=== PATIENT | female | born 1995 | race Caucasian/White ===

== ENCOUNTER 2016-11-10 17:13 | Emergency (ER) | payer OTHER ==
[2016-11-10 17:41] VITALS: BP 111/68; PULSE 99; RESP 16; TEMP 98.2; O2SAT 98
--- NOTE | 2016-11-10 18:44 | EDPHY ---
H & P Stated Complaint: Flu Exposure HPI/ROS: Chief complaint: Cold symptoms History of present illness: This is a 21-year-old female who presents to the emergency department for cold symptoms. Patient reports the last 2-3 days she has had tactile fevers, runny nose, sore throat, and body aches. She does state that multiple friends around her have been diagnosed with influenza B. She denies other associated signs or symptoms including no cough, no chest congestion, no trouble breathing, no rash, no headache or neck pain. - Personal History Current Tetanus/Diphtheria Vaccine: Yes Current Tetanus Diphtheria and Acellular Pertussis (TDAP): Yes - Medical/Surgical History Hx Asthma: No Hx Chronic Respiratory Disease: No Hx Diabetes: No Hx Cardiac Disease: No Hx Renal Disease: No Hx Cirrhosis: No Hx Alcoholism: No Hx HIV/AIDS: No Hx Splenectomy or Spleen Trauma: No Other PMH: Denies - Social History Smoking Status: Never smoked - Physical Exam Exam: General Appearance: Alert and no distress. Eyes: Pupils equal and round no injection. ENT:Tympanic membranes, external auditory canals, external ears and surrounding soft tissue including over the mastoids are unremarkable. Nasopharynx is not injected. There is no rhinorrhea. Oropharynx is not injected. There is no edema. There is no exudate. There is no asymmetry. The uvula is midline. No elevation of the tongue. There is no hoarseness, no drooling, no trismus, no stridor. Respiratory: Chest is non tender, lungs are clear to auscultation. Cardiac: regular rate and rhythm Gastrointestinal: Abdomen is soft and non tender, no masses, bowel sounds normal. Musculoskeletal: Neck is supple and non tender. Extremities have full range of motion and are non tender. Skin: No rashes or lesions. Neurological: Alert and oriented x4. Ambulating without difficulty. No meningismus. Constitutional: Initial Vital Signs Temperature (C) 36.8 C 11/10/16 17:39 Heart Rate 99 11/10/16 17:39 Respiratory Rate 16 11/10/16 17:39 Blood Pressure 111/68 11/10/16 17:39 O2 Sat (%) 98 11/10/16 17:39 O2 Delivery Mode Room Air Allergies/Adverse Reactions: No Known Allergies Allergy (Unverified 07/08/16 16:16) Home Medications: Medication Instructions Recorded Oseltamivir Phosphate [Tamiflu 75 75 mg PO BID #10 cap 11/10/16 mg (*)] Medical Decision Making ED Course/Re-evaluation: Patient seen under the supervision of my primary supervising physician Dr. Cindy Obregon. Patient presents to the emergency department for cold symptoms. On presentation she is nontoxic. Physical exam is largely unremarkable. Influenza B is positive. She does appear to be within treatment range for tamiflu, I have discussed the risks and benefits and she would like to proceed with treatment. Patient is prescribed Tamiflu. Home care is discussed. She is asked to follow up with primary care doctor for recheck. Return precautions are given. - Data Points Laboratory Results: 11/10/16 17:45 Influenza Typ A,B (DFA) POSITIVE FOR FLU B H (NEGATIVE) Departure - Departure Disposition: Home, Routine, Self-Care Clinical Impression: Influenza B Condition: Good Instructions: Influenza (ED) Additional Instructions: Follow-up with her primary care doctor in 1-2 days for recheck If symptoms worsen or new symptoms develop return to the emergency department for recheck Referrals: Reji Palmer DO [Primary Care Provider] - As per Instructions Stand Alone Forms: School Excuse Prescriptions: Oseltamivir Phosphate [Tamiflu 75 mg (*)] 75 mg PO BID #10 cap
== END 2016-11-10 18:44 | disposition home or self-care (01) ==
DX: J10.1 Influenza due to other identified influenza virus with other respiratory manifestations (principal)

== ENCOUNTER 2017-05-06 13:39 | Observation (INO) | payer OTHER ==
[2017-05-06] MEDS ORDERED: LORazepam 2 MG/ML INJ IVP ONE (14:37)
[2017-05-06] MEDS ORDERED: NS 2,000 ML IV ONE (14:37)
[2017-05-06] MEDS ORDERED: KETOROLAC 30 MG/1 ML SDV IVP ONE (14:37)
--- NOTE | 2017-05-06 14:42 | EDPHY ---
H & P Stated Complaint: h/a, sore thrt, bilat ear pain, chills, body aches - Personal History LMP (Females 10-55): Now Current Tetanus/Diphtheria Vaccine: Unsure Current Tetanus Diphtheria and Acellular Pertussis (TDAP): Unsure - Medical/Surgical History Hx Asthma: No Hx Chronic Respiratory Disease: No Hx Diabetes: No Hx Cardiac Disease: No Hx Renal Disease: No Hx Cirrhosis: No Hx Alcoholism: No Hx HIV/AIDS: No Hx Splenectomy or Spleen Trauma: No Other PMH: Denies - Social History Smoking Status: Never smoked Time Seen by Provider: 05/06/17 14:23 HPI/ROS: CHIEF COMPLAINT: "I just feel like crap" HISTORY OF PRESENT ILLNESS: 21-year-old female in the ER with mother via private vehicle stating that last week she was seen at [facility] diagnosed with cystitis and started on Keflex which she completed. Since yesterday morning she has been complaining of bilateral flank pain, non thunderclap bifrontal headache, myalgias, sore throat, bilateral otalgia. She denies: Nuchal rigidity, abdominal pain, chest pain, dyspnea, cough, rash REVIEW OF SYSTEMS: A ten point review of systems was performed and is negative with the exception of the items mentioned in the HPI PAST MEDICAL & SURGICAL HISTORY: recent cystitis diagnosis SOCIAL HISTORY:[employer] student. Nonsmoker. PHYSICAL EXAM (Prior to examination, patient consented to physical exam, hands were washed and my usual and customary physical exam procedures followed) 1) GENERAL: Well-developed, well-nourished, alert and oriented. Appears uncomfortable, sitting in a darkened room, positive photophobia . 2) HEAD: Normocephalic, atraumatic 3) HEENT: Pupils equal, round, reactive to light bilaterally. Sclera anicteric. Positive photophobia Nasopharynx, oropharynx, clear, no lesions. No tonsillar enlargement or exudate Ears bilaterally with normal tympanic membranes. 4) NECK: Full range of motion, no meningeal signs. 5) LUNGS: Clear auscultation bilaterally, no wheezes, no rhonchi, no retractions. 6) HEART: Regular rate and rhythm, no murmur, no heave, no gallop. 7) ABDOMEN: No guarding, no rebound, no focal tenderness, negative McBurney's, negative Klein's, negative Rovsing's, negative peritoneal sign, 8) MUSCULOSKELETAL: Moving all extremities, no focal areas of tenderness, no obvious trauma. No peripheral edema or discoloration. 9) BACK: positive bilateral CVA tenderness, no midline vertebral tenderness, no fluctuance, no step-off, no obvious trauma, no visual or palpable abnormality. 10) SKIN: No rash, no petechiae. 11) Psychiatric: Patient is oriented X 3, there is no agitation. DIFFERENTIAL DIAGNOSIS: in no particular include but limited to meningitis, pyelonephritis, influenza (Clayton,Estefani Ursula) Constitutional: Initial Vital Signs Temperature (C) 37.5 C 05/06/17 13:56 Heart Rate 116 H 05/06/17 13:56 Respiratory Rate 16 05/06/17 13:56 Blood Pressure 110/79 05/06/17 13:56 O2 Sat (%) 98 05/06/17 13:56 O2 Delivery Mode Room Air Allergies/Adverse Reactions: No Known Allergies Allergy (Unverified 07/08/16 16:16) Home Medications: Medication Instructions Recorded levOFLOXACIN [levAQUIN (*)] 750 mg PO DAILY #4 tab 05/06/17 oxyCODONE/APAP 5/325 [Percocet 1 tab PO Q6 #10 tab 05/06/17 5/325] Medical Decision Making ED Course/Re-evaluation: The patient was evaluated and managed by the physician's residential living assistant. My cosignature indicates that I reviewed the chart and I agree with the findings and plan of care as documented. I am the secondary supervising physician. ( Eileen Pinon) 4:30 p.m.: Re-evaluation, sleeping, 2 L IV fluid completed. She appears comfortable. Awaiting urinalysis and respiratory viral panel results 5:30 p.m.: Patient re-evaluated, sleeping, easily woken, appears to be in no acute distress. No nuchal rigidity, excellent range of motion of the neck. Continued positive right CVA tenderness. No abdominal pain. Doubt acute surgical abdominal pathology. We discussed possible pyelonephritis in the presence of her recent cystitis. The case discussed with Dr. Eileen Pinon in the ER who also evaluated the patient. Doubt perinephric abscess. Doubt nephrolithiasis. Doubt sepsis. Doubt meningitis. 6:15 p.m.: Re-evaluation, the patient does not feel comfortable being discharged home. She remains tachycardic in the 110s. Discussed possibility of pyelonephritis. Both Dr. Eileen Pinon and I agree that the patient should be admitted to the hospital and she is agreeable with this. 6:20 p.m.: Phone consultation with Dr. Funes who will admit (Estefani Arnold) - Data Points Laboratory Results: Laboratory Results 05/06/17 15:00 05/06/17 15:00 05/06/17 05/06/17 05/06/17 16:23 15:00 15:00 WBC RBC Hgb Hct MCV MCH MCHC RDW Plt Count MPV Neut % (Auto) Lymph % (Auto) [place] % (Auto) Eos % (Auto) Baso % (Auto) Nucleat RBC Rel Count Absolute Neuts (auto) Absolute Lymphs (auto) Absolute Monos (auto) Absolute Eos (auto) Absolute Basos (auto) Absolute Nucleated RBC Immature Gran % Immature Gran # Sodium 136 mEq/L mEq/L (134-144) Potassium 3.7 mEq/L mEq/L (3.5-5.2) Chloride 101 mEq/L mEq/L (97-110) Carbon Dioxide 21 mEq/l L mEq/l (22-31) Anion Gap 14 mEq/L mEq/L (8-16) BUN 9 mg/dL mg/dL (7-23) Creatinine 0.7 mg/dL mg/dL (0.6-1.0) Estimated GFR > 60 Glucose 91 mg/dL mg/dL (70-100) Calcium 9.7 mg/dL mg/dL (8.5-10.4) Beta HCG, Qual NEGATIVE Urine Color PALE YELLOW Urine Appearance CLEAR Urine pH 7.0 (5.0-7.5) Ur Specific [place] 1.008 (1.002-1.030) Urine Protein NEGATIVE (NEGATIVE) Urine Ketones TRACE H (NEGATIVE) Urine Blood 1+ H (NEGATIVE) Urine Nitrate NEGATIVE (NEGATIVE) Urine Bilirubin NEGATIVE (NEGATIVE) Urine Urobilinogen NEGATIVE EU EU (0.2-1.0) Ur Leukocyte Esterase NEGATIVE (NEGATIVE) Urine RBC 1-3 /hpf /hpf (0-3) Urine WBC 1-3 /hpf /hpf (0-3) Ur Epithelial Cells NONE SEEN /lpf /lpf (NONE-1+) Urine Mucus TRACE /lpf /lpf (NONE-1+) Urine Glucose NEGATIVE (NEGATIVE) 05/06/17 15:00 WBC 15.01 10^3/uL H 10^3/uL (3.80-9.50) RBC 4.73 10^6/uL 10^6/uL (4.18-5.33) Hgb 15.0 g/dL g/dL (12.6-16.3) Hct 43.5 % % (38.0-47.0) MCV 92.0 fL fL (81.5-99.8) MCH 31.7 pg pg (27.9-34.1) MCHC 34.5 g/dL g/dL (32.4-36.7) RDW 12.5 % % (11.5-15.2) Plt Count 221 10^3/uL 10^3/uL (150-400) MPV 10.4 fL fL (8.7-11.7) Neut % (Auto) 90.5 % H % (39.3-74.2) Lymph % (Auto) 5.0 % L % (15.0-45.0) [place] % (Auto) 3.7 % L % (4.5-13.0) Eos % (Auto) 0.0 % L % (0.6-7.6) Baso % (Auto) 0.5 % % (0.3-1.7) Nucleat RBC Rel Count 0.0 % % (0.0-0.2) Absolute Neuts (auto) 13.58 10^3/uL H 10^3/uL (1.70-6.50) Absolute Lymphs (auto) 0.75 10^3/uL L 10^3/uL (1.00-3.00) Absolute Monos (auto) 0.56 10^3/uL 10^3/uL (0.30-0.80) Absolute Eos (auto) 0.00 10^3/uL L 10^3/uL (0.03-0.40) Absolute Basos (auto) 0.07 10^3/uL 10^3/uL (0.02-0.10) Absolute Nucleated RBC 0.00 10^3/uL 10^3/uL (0-0.01) Immature Gran % 0.3 % % (0.0-1.1) Immature Gran # 0.05 10^3/uL 10^3/uL (0.00-0.10) Sodium Potassium Chloride Carbon Dioxide Anion Gap BUN Creatinine Estimated GFR Glucose Calcium Beta HCG, Qual Urine Color Urine Appearance Urine pH Ur Specific Baldwin Urine Protein Urine Ketones Urine Blood Urine Nitrate Urine Bilirubin Urine Urobilinogen Ur Leukocyte Esterase Urine RBC Urine WBC Ur Epithelial Cells Urine Mucus Urine Glucose Microbiology Results: MICROBIOLOGY 05/06/17 15:05 Nasal, Sinus - Swab Respiratory Panel (PCR) - Final No Organism Detected Medications Given: Discontinued Medications Sodium Chloride (Ns) 2,000 mls @ 0 mls/hr IV ONCE ONE PRN Reason: Wide Open Stop: 05/06/17 14:38 Last Admin: 05/06/17 15:10 Dose: 2,000 mls Ketorolac Tromethamine (Toradol) 30 mg IVP EDNOW ONE Stop: 05/06/17 14:38 Last Admin: 05/06/17 15:09 Dose: 30 mg Levofloxacin (Levaquin) 750 mg PO EDNOW ONE PRN Reason: Protocol Stop: 05/06/17 17:33 Last Admin: 05/06/17 17:41 Dose: 750 mg Lorazepam (Ativan Injection) 1 mg IVP EDNOW ONE Stop: 05/06/17 14:38 Last Admin: 05/06/17 15:09 Dose: 1 mg Departure - Departure Disposition: [facility] Clinical Impression: Pyelonephritis Condition: Good Instructions: Kidney Infection (ED) Additional Instructions: Return to the ER immediately if you experience fevers/chills, flu like symptoms , inability to tolerate oral intake, nausea or vomiting, or any other symptoms that concern you. Prescriptions: levOFLOXACIN [levAQUIN (*)] 750 mg PO DAILY #4 tab oxyCODONE/APAP 5/325 [Percocet 5/325] 1 tab PO Q6 #10 tab
[2017-05-06 15:14] LABS: % IMMATURE GRANULYOCYTES 0.3 % (0.0-1.1); ABSOLUTE IMMATURE GRANULOCYTES 0.05 10^3/uL (0.00-0.10); ADD DIFF? NO; ADD MORPH? NO; ADD SCAN? NO; ATYPICAL LYMPHOCYTE FLAG 0 (0-99); FRAGMENT RBC FLAG 0 (0-99); HEMATOCRIT 43.5 % (38.0-47.0); LEFT SHIFT FLG 0 (0-99); LIPEMIA HEMOLYSIS FLAG 90 (0-99); MEAN CELL HEMOGLOBIN 31.7 pg (27.9-34.1); MEAN CELL HEMOGLOBIN CONCENTR. 34.5 g/dL (32.4-36.7); MEAN PLATELET VOLUME 10.4 fL (8.7-11.7); PLATELET CLUMPS FLAG 30 (0-99); PLATELET COUNT 221 10^3/uL (150-400); RED BLOOD CELL COUNT 4.73 10^6/uL (4.18-5.33); RED CELL DISTRIBUTION WIDTH 12.5 % (11.5-15.2)
[2017-05-06 15:27] LABS: ANION GAP 14 mEq/L (8-16); CALCIUM 9.7 mg/dL (8.5-10.4); CARBON DIOXIDE 21 mEq/l (22-31); CHLORIDE 101 mEq/L (97-110); CREATININE 0.7 mg/dL (0.6-1.0); GLOMERULAR FILTRATION RATE > 60; GLUCOSE 91 mg/dL (70-100); POTASSIUM 3.7 mEq/L (3.5-5.2); SODIUM 136 mEq/L (134-144)
[2017-05-06 16:36] LABS: COLOR PALE YELLOW; LEUKOCYTE ESTERASE,URINE NEGATIVE (NEGATIVE); NITRITE,URINE NEGATIVE (NEGATIVE)
[2017-05-06 16:37] LABS: MUCUS TRACE /lpf (NONE-1+)
[2017-05-06] MEDS ORDERED: OXYCODONE/APAP 5/325 TAB PO ONE (18:05)
[2017-05-06] MEDS ORDERED: ACETAMINOPHEN 500 MG TAB PO ONE (19:26)
[2017-05-06] MEDS ORDERED: ONDANSETRON 4 MG/2 ML VIAL IVP PRN (20:04)
[2017-05-06] MEDS ORDERED: KETOROLAC 30 MG/1 ML SDV IVP PRN (20:04)
[2017-05-06] MEDS ORDERED: PROMETHAZINE HCL 25 MG/ML INJ IVP PRN (20:04)
[2017-05-06] MEDS ORDERED: ACETAMINOPHEN 325 MG TAB PO PRN (20:04)
--- NOTE | 2017-05-06 20:55 | GHP ---
[f rep st] HISTORY AND PHYSICAL DATE OF ADMISSION: 05/06/2017 CHIEF COMPLAINT: Fever, headache, body aches, and flank pain. HISTORY OF PRESENT ILLNESS: This is a 21-year-old female who was treated for a urinary tract infecti on last week with Keflex who presents to the hospital today with fever, headaches, body aches, and fl ank pain. Since starting the Keflex last week her urinary symptoms have resolved. However, she continues to rodriguez ve some flank pain. She denies any nausea or vomiting. She reports muscle aches all over. She has a history of migraines in her teens but has not had a migraine for some time. Currently, her headach e is described as bitemporal, sharp and pounding, and is associated with photophobia. PAST MEDICAL HISTORY: Asthma. PAST SURGICAL HISTORY: Denies. HOME MEDICATIONS: Denies. ALLERGIES: No known drug allergies. SOCIAL HISTORY: She denies any alcohol, tobacco, or illicit drug use. She denies any history or ris k factors for sexually transmitted infections. FAMILY HISTORY: Reviewed and noncontributory. REVIEW OF SYSTEMS: Comprehensive 10-point review of systems was done and is negative, except for as mentioned in the History of Present Illness. PHYSICAL EXAM: VITAL SIGNS: Blood pressure 113/68, pulse of 111, respiratory rate 16, O2 saturation 97% on room air. Temperature: Afebrile. GENERAL: Ill-appearing but in no acute distress. Appear s to be mildly uncomfortable. HEAD: Normocephalic, atraumatic. EYES: PERRLA. Sclerae anicteric. MOUTH: Moist mucous membranes. NECK: Supple. No lymphadenopathy. No nuchal rigidity or meningis mus. CARDIOVASCULAR: S1, S2. No JVD. No lower extremity edema. PULMONARY: Lungs are clear. No wheezes, rales, or rhonchi. ABDOMEN: Soft, nontender, nondistended. No guarding or rebound tendern ess. Normoactive bowel sounds. EXTREMITIES: No clubbing or cyanosis. NEURO: Cranial nerves 2-12 grossly intact. No focal motor or sensory deficits. SKIN: Clear. No rashes. DIAGNOSTICS: WBC is 15, hemoglobin 15, hematocrit 43.5, platelets 221. Sodium 136, potassium 3.7, c hloride 101, CO2 21, BUN 9, creatinine 0.7, glucose 91, beta HCG negative. UA: Trace ketones, 1+ bl ood, negative leukocyte esterase, negative nitrate. Respiratory PCR was negative for flu. Blood and urine cultures are pending. ASSESSMENT AND PLAN: This is a 21-year-old female, recently treated for urinary tract infection who presents with: 1. Systemic inflammatory response syndrome with unclear bacterial etiology. I suppose she could hav e pyelo. However, this seems suspect given that she is no longer having any lower urinary tract symp toms and her urine does not show signs of infection. Plan: At any rate, the patient will be placed on observation where we will treat her supportively with IV fluids, anti-inflammatory medications and Levaquin that was given in the emergency department. 2. Headache that seems to be improving. Plan: It seems like her headache is likely due to migraine triggered by her acute illness. Her headache will be treated supportively as described above. If t he patient's condition worsens or if she does appear to be more toxic, I think it would be reasonable to pursue a lumbar puncture. However, without any neck stiffness or nuchal rigidity, I think that m eningitis is an unlikely diagnosis. /[id number]/MODL
[2017-05-06] MEDS: D5W 1/2 NS W/ 20 KCl/L 1,000 ML IV SCH (22:32)
[2017-05-07] MEDS: D5W 1/2 NS W/ 20 KCl/L 1,000 ML IV SCH (06:19)
[2017-05-07] MEDS ORDERED: ALBUTEROL 60 PUFFS/8 GM MDI IH PRN (07:33)
[2017-05-07] MEDS ORDERED: ALBUTEROL 200 PUFFS/18 GM MDI IH PRN (07:42)
[2017-05-07 07:53] VITALS: RESP 16; O2SAT 98
[2017-05-07 08:20] VITALS: BP 110/74; PULSE 101; TEMP 98.8
[2017-05-07 09:39] LABS: % IMMATURE GRANULYOCYTES 0.2 % (0.0-1.1); ABSOLUTE IMMATURE GRANULOCYTES 0.02 10^3/uL (0.00-0.10); ADD DIFF? NO; ADD MORPH? NO; ADD SCAN? NO; ATYPICAL LYMPHOCYTE FLAG 0 (0-99); FRAGMENT RBC FLAG 0 (0-99); HEMATOCRIT 37.3 % (38.0-47.0); HEMOGLOBIN 12.6 g/dL (12.6-16.3); LEFT SHIFT FLG 0 (0-99); LIPEMIA HEMOLYSIS FLAG 90 (0-99); MEAN CELL HEMOGLOBIN 31.4 pg (27.9-34.1); MEAN CELL HEMOGLOBIN CONCENTR. 33.8 g/dL (32.4-36.7); MEAN PLATELET VOLUME 10.7 fL (8.7-11.7); PLATELET CLUMPS FLAG 10 (0-99); PLATELET COUNT 182 10^3/uL (150-400); RED BLOOD CELL COUNT 4.01 10^6/uL (4.18-5.33); RED CELL DISTRIBUTION WIDTH 12.7 % (11.5-15.2)
[2017-05-07 09:54] LABS: ALANINE AMINOTRANSFERASE 22 IU/L (9-52); ALBUMIN 3.3 g/dL (3.5-5.0); ALKALINE PHOSPHATASE 33 IU/L (38-126); ANION GAP 8 mEq/L (8-16); ASPARTATE AMINOTRANSFERASE 12 IU/L (14-46); BILIRUBIN,TOTAL 0.5 mg/dL (0.1-1.4); CALCIUM 8.8 mg/dL (8.5-10.4); CARBON DIOXIDE 22 mEq/l (22-31); CHLORIDE 109 mEq/L (97-110); CREATININE 0.7 mg/dL (0.6-1.0); GLOMERULAR FILTRATION RATE > 60; GLUCOSE 90 mg/dL (70-100); SODIUM 139 mEq/L (134-144); TOTAL PROTEIN 5.6 g/dL (6.3-8.2)
--- NOTE | 2017-05-07 16:49 | PDDCSUM ---
Discharge Summary Discharge Summary: DISCHARGE SUMMARY FOLLOW-UP ITEMS: Urine culture DATE OF ADMISSION: 05/06/2017 DATE OF DISCHARGE: 05/07/17 DISCHARGE DIAGNOSES: 1. Possible pyelonephritis 2. Recent urinary tract infection 3. Acute abdominal pain CONSULTATIONS: None PROCEDURES / IMAGING: None CHIEF COMPLAINT: Acute abdominal pain SUBJECTIVE: Patient is feeling better at time of discharge, her right-sided flank pain has completely resolved PHYSICAL EXAM ON DISCHARGE: Systolic blood pressure is 100, heart rate 80, afebrile overnight, satting well on room air, abdomen is soft, nontender, CVA tenderness has resolved, pain level 0/10 LABS ON DISCHARGE: Respiratory viral panel negative, urinalysis with 1+ ketones and blood, lactic acid normal, procalcitonin 0.08, white blood cell count normal, creatinine normal, urine culture demonstrating 5-7000 gram-negative rods HOSPITAL COURSE BY PROBLEM: 1. Possible pyelonephritis and persistent urinary tract infection. Patient presented with flank pain and recent urinary tract infection, concerning for pyelonephritis. That being said, her urinalysis only demonstrated some blood in ketones, indicative of inflammation and poor oral hydration, and her urine culture only grew 5-7000 gram-negative rods, and her procalcitonin (used to determine if a bacterial infection is present) was negative. That being said, the patient had recently been on oral antibiotics, and her culture results, PCT , and urinalysis may have been suppressed. She did have evidence of leukocytosis, and she was adjusted from her previous antibiotic to levofloxacin. Should be continued on a total 5 days of levofloxacin persistent urinary tract infection and I have recommended outpatient primary care follow- up. She responded appropriately to symptomatic care, and I recommend scheduled naproxen for the next 5 days, breakthrough Tylenol and breakthrough oxycodone if needed. DISCHARGE MEDICATIONS: Please see official discharge medication reconciliation sheet in chart , oxycodone immediate release 5 mg, 10 tablets prescribed, levofloxacin 750 mg daily x4 subsequent days DISCHARGE INSTRUCTIONS: Please follow up with primary care provider within the next 2 days, Erick Eubanks
--- NOTE | 2017-05-07 17:07 | ASDISCHSUM ---
Discharge Information Plan Status:Home with No Needs Medically Cleared to Leave: Discharge Date:05/07/2017 12:01 PM D/C Disposition:Home, Routine, Self-Care ADT D/C Disposition:Home, Routine, Self-Care Projected Discharge Date:05/07/2017 12:00 AM Transportation at D/C: Discharge Delay Reason: Follow-Up Date:05/07/2017 12:00 AM Discharge Slot: Final Diagnosis: Placement Information Patient Contact Information Contact Name:DAMIR Relationship:Mother Address: Work Phone: City: [facility] Phone: State/Zip Code: Email: Financial Information Financial Class:HMO and PPO Plans Primary Plan Desc:[employer] PPO POS HMO Primary Plan Number:[id number] Secondary Plan Desc: Secondary Plan Number: Assessment Information Intervention Information
== END 2017-05-07 12:01 | disposition home or self-care (01) ==
LOC: F3E 19:42
PROVIDERS: ADMIT Family Medicine; ATTEND Internal Medicine
DX: N39.0 Urinary tract infection, site not specified (principal); R10.31 Right lower quadrant pain; R00.0 Tachycardia, unspecified; R51 Headache; Z87.440 Personal history of urinary (tract) infections
CPT/HCPCS: G0378 ×2; 96374; J1885; J2060